=== PATIENT | male | born 2000 | race Caucasian/White ===

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

== ENCOUNTER 2022-03-15 19:09 | Emergency (ER) | payer BC ==
[2022-03-15 19:16] VITALS: BP 147/76; PULSE 87; RESP 18; TEMP 98.2
[2022-03-15] MEDS ORDERED: FLUORESCEIN STRIPS 1 MG STRIP LEFT EYE ONE (19:53)
--- NOTE | 2022-03-15 20:25 | ED ---
Eye Problem HPI - General Chief complaint: Eye Problems Stated complaint: Wood stuck in Lt eye Time Seen by Provider: 03/15/22 19:48 Source: patient Mode of arrival: ambulatory Limitations: no limitations - History of Present Illness Initial comments: Patient is a 21-year-old male presenting with chief complaint of left eye pain. Patient was at work when he felt a piece of wood shoot into his eye at 9:30 this morning. Patient is to stay at work and then reported to the ER for evaluation. Patient reports no visual changes, admits to pain and increased watering of the eye. There is some swelling to the upper eyelid. Patient is not a contact lens wearer. Last tetanus shot was 5 years ago. - Related Data Previous Rx's Medication Instructions Recorded EPINEPHrine (Auto Inj.) PEDS 0.15 mg IM ONCE PRN #2 syringe 11/29/16 [Epipen Jr] predniSONE 50 mg PO DAILY #5 tablet 11/29/16 Allergies Allergy/AdvReac Type Severity Reaction Status Date / Time No Known Allergies Allergy Verified 03/15/22 19:16 Review of Systems ROS Statement: Those systems with pertinent positive or pertinent negative responses have been documented in the HPI. ROS Other: All systems not noted in ROS Statement are negative. Past Medical History Past Medical History: No Reported History History of Any Multi-Drug Resistant Organisms: None Reported Past Surgical History: No Surgical Hx Reported Past Psychological History: No Psychological Hx Reported Smoking Status: Vaper Past Alcohol Use History: Occasional Past Drug Use History: None Reported General Exam Limitations: no limitations General appearance: alert, in no apparent distress Head exam: Present: atraumatic, normocephalic, normal inspection Expanded Eyelids: Erythema: Left, Swelling: Left Sclera/Conjunctival: Injection: Left (No foreign body, corneal abrasion is appreciated on fluorescein staining) Visual acuity (R) = 20/: 20 Visual acuity (L) = 20/: 20 With correction: No Neck exam: Present: normal inspection Respiratory exam: Present: normal lung sounds bilaterally. Absent: respiratory distress, wheezes, rales, rhonchi, stridor Cardiovascular Exam: Present: regular rate, normal rhythm, normal heart sounds. Absent: systolic murmur, diastolic murmur, rubs, gallop, clicks Neurological exam: Present: alert, oriented X3, CN II-XII intact Psychiatric exam: Present: normal affect, normal mood Skin exam: Present: warm, dry, intact, normal color. Absent: rash Course Vital Signs 03/15/22 03/15/22 19:15 20:53 Temperature 98.2 F Pulse Rate 87 Respiratory 18 18 Rate Blood Pressure 147/76 O2 Sat by Pulse 99 Oximetry Medical Decision Making - Medical Decision Making Patient is 21-year-old male presenting with chief complaint of left eye pain. Patient states a piece of wood flew into his eye while at work today. This occurred this morning, he worked the rest shift present to the ER for evaluation. On examination there is tearing and conjunctival injection. Fluorescein staining shows corneal abrasion, negative Tyrell sign. Patient will be treated with sulfacetamide 10% eyedrops, apply 2 drops 4 times a day for 5 days. He is provided with ophthalmology follow-up. Follow-up with PCP. Report back to ER with any new or worsening symptoms. Discussed return parameters and answered all questions. Patient conveyed verbal understanding and agreed to the plan. I discussed this case in detail with my attending Dr. Rich Disposition Clinical Impression: Corneal abrasion Disposition: HOME SELF-CARE Condition: Good Instructions (If sedation given, give patient instructions): Abrasion (ED) Additional Instructions: Follow-up with ophthalmology. Report back to ER with any new or worsening symptoms. Apply eye drops to affected eye 4 times a day for 5 days. Is patient prescribed a controlled substance at d/c from ED?: No Referrals: Veronica Houston MD [Primary Care Provider] - 1-2 days Chuck Hernández MD [STAFF PHYSICIAN] - 1-2 days Time of Disposition: 20:25
[2022-03-16] MEDS ORDERED: SULFACETAMIDE SOD 10% OPHTH DROPS 15 ML BTL LEFT EYE SCH
== END 2022-03-15 20:54 | disposition home or self-care (01) ==
LOC: EC 19:09
DX: S05.02XA Injury of conjunctiva and corneal abrasion without foreign body, left eye, initial encounter (principal); F17.290 Nicotine dependence, other tobacco product, uncomplicated; W22.8XXA Striking against or struck by other objects, initial encounter
CPT/HCPCS: 99283

== ENCOUNTER 2024-09-12 11:13 | Day surgery (SDC) | payer BC ==
[~2024-09-12 11:13] MED LIST: LIDOCAINE 1% (10MG/ML) FOR IV START INTRADERMA PRN
[2024-09-12] MEDS: LACTATED RINGERS 1,000 ML IV SCH (12:05)
[2024-09-12] MEDS: IV FLUID CONTINUATION 1,000 ML IV ONE (12:06)
[2024-09-12] MEDS ORDERED: LIDOCAINE 1% INJ 10MG/ML (20 ML MDV) ONE (12:08)
[2024-09-12] MEDS ORDERED: PROPOFOL 10 MG/ML 20 ML VIAL IV ONE (12:08)
[2024-09-12 12:10] VITALS: TEMP 99
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
--- NOTE | 2024-09-12 12:26 | P.PCN ---
Date of Procedure: 09/12/24 Procedure(s) Performed: PREOPERATIVE DIAGNOSIS: Change in bowel habits, incontinence POSTOPERATIVE DIAGNOSIS: Normal-appearing colon PROCEDURE: Colonoscopy with random biopsy ANESTHESIA: MAC SURGEON: Mike Lamar M.D. SPECIMENS: Colon random ENDOSCOPIC PROCEDURE: The patient was placed on the endoscopy table in the left decubitus position. The Olympus colonoscope was inserted into the anus and passed under direct visualization to the base of the cecum. The appendiceal orifice was visualized. From that point the scope was slowly withdrawn inspecting all surfaces carefully. There were no neoplastic inflammatory or polypoid lesions throughout the cecum, ascending, transverse, descending, sigmoi d and rectum. There was no visible diverticulosis noted. Random biopsies were taken throughout the colon. Digital rectal examination was normal. The patient was taken to the recovery room in stable condition per anesthesia guidelines. RECOMMENDATIONS: Await biopsy results. If symptoms persist consider colorectal surgery evaluation for possible anal rectal stimulator placement
[2024-09-12 13:18] VITALS: BP 102/57; PULSE 73; RESP 16
== END 2024-09-12 13:41 ==
LOC: ORWHC2ENDO 11:13
PROVIDERS: ATTEND Surgery
DX: R15.9 Full incontinence of feces (principal); R19.7 Diarrhea, unspecified; Z87.891 Personal history of nicotine dependence
CPT/HCPCS: 45378; J2003; J2704